=== PATIENT | female | born 1980 | race African-American/Black ===

== ENCOUNTER 2017-02-20 16:47 | Emergency (ER) | payer MEDICAID, OTHER ==
[~2017-02-20] VITALS: Ht 170.2 cm; Wt 119.0 kg
[2017-02-20 17:27] VITALS: BP 146/64
[2017-02-20] MEDS ORDERED: ACETAMINOPHEN 325 MG TABLET PO ONE (17:45)
[2017-02-20] MEDS ORDERED: SULFAMETHOX/TRIMETH DS 800-160 MG/TABLET PO ONE (17:45)
[2017-02-20] MEDS ORDERED: CEPHALEXIN MONOHYDRATE 500 MG CAPSULE PO ONE (17:45)
== END 2017-02-20 18:18 | disposition home or self-care (01) ==
LOC: EMS 16:49
DX: L03.116 Cellulitis of left lower limb (principal); Z88.0 Allergy status to penicillin; Z90.49 Acquired absence of other specified parts of digestive tract
CPT/HCPCS: 99284

== ENCOUNTER 2017-02-25 16:47 | Emergency (ER) | payer MEDICAID ==
[~2017-02-25] VITALS: Ht 170.2 cm; Wt 119.1 kg
[2017-02-25] MEDS ORDERED: SULF1TAB42 PO (17:11)
[2017-02-25] MEDS ORDERED: CEPH500 PO (17:11)
[2017-02-25] MEDS ORDERED: IBUPROFEN 800 MG TABLET PO ONE (19:00)
[2017-02-25] MEDS ORDERED: ACETAMINOPHEN/CODEINE 300-30 MG TABLET PO ONE (19:00)
[2017-02-25 19:08] LABS: BASOPHILS # (AUTO) 0.01 K/uL (0.00-0.20); BASOPHILS % (AUTO) 0.1 % (0.0-2.0); EOSINOPHILS # (AUTO) 0.54 K/uL (0.00-0.70); EOSINOPHILS % (AUTO) 5.49 % (1.0-6.0); HEMOGLOBIN 14.1 g/dL (12.0-16.0); LYMPHOCYTES # (AUTO) 0.7 K/uL (1.0-4.8); LYMPHOCYTES % (AUTO) 6.8 % (22.0-44.0); MEAN CORPUSCULAR HEMOGLOBIN 30.8 pg (26.0-34.0); MEAN CORPUSCULAR HGB CONC 34.3 G/dL (31.0-37.0); MEAN CORPUSCULAR VOLUME 90 fL (80-100); MONOCYTES # (AUTO) 0.4 K/uL (0.1-1.0); NEUTROPHILS # (AUTO) 8.3 K/uL (1.8-7.7); NEUTROPHILS % (AUTO) 83.6 % (40.0-70.0); PLATELET COUNT (AUTO) 259 K/uL (150-450); RED BLOOD CELL COUNT(AUTO) 4.56 MIL/uL (4.00-5.20); RED CELL DISTRIBUTION WIDTH 13.7 % (11.5-14.5); WHITE BLOOD COUNT (AUTO) 9.9 K/uL (4.5-11.0)
[2017-02-25 19:19] LABS: CALCIUM, TOTAL 8.6 mg/dL (8.8-10.5); CREATININE 1.35 mg/dL (0.60-1.30); POTASSIUM 4.2 mmol/L (3.5-5.1)
[2017-02-25 19:25] LABS: ALBUMIN 3.3 g/dL (3.4-5.0); BILIRUBIN,TOTAL 0.3 mg/dL (0.1-1.0); TOTAL PROTEIN, SERUM 6.6 g/dL (6.4-8.2)
[2017-02-25 20:32] VITALS: BP 135/80
== END 2017-02-25 20:38 | disposition home or self-care (01) ==
LOC: EMS 16:48
DX: L03.311 Cellulitis of abdominal wall (principal); L03.119 Cellulitis of unspecified part of limb; K52.9 Noninfective gastroenteritis and colitis, unspecified; K21.9 Gastro-esophageal reflux disease without esophagitis; I10 Essential (primary) hypertension; R13.10 Dysphagia, unspecified; Z88.0 Allergy status to penicillin; Z90.49 Acquired absence of other specified parts of digestive tract; Z80.0 Family history of malignant neoplasm of digestive organs; Z87.891 Personal history of nicotine dependence
CPT/HCPCS: 99284

== ENCOUNTER 2017-02-26 13:18 | Emergency (ER) | payer MEDICAID ==
[~2017-02-26] VITALS: Ht 171.4 cm; Wt 119.0 kg
[~2017-02-26 13:18] MED LIST: CEPH500 PO; SULF1TAB42 PO
[2017-02-26] MEDS ORDERED: ACETAMINOPHEN 500 MG TABLET PO ONE (13:30)
[2017-02-26] MEDS ORDERED: ONDANSETRON HCL 4 MG/2 ML VIAL IVP ONE ×2 (13:45→15:15)
[2017-02-26] MEDS ORDERED: SODIUM CHLORIDE 0.9% 1,000 ML IV ONE ×2 (13:45→17:45)
[2017-02-26 14:16] LABS: HEMATOCRIT 39.7 % (36-46); HEMOGLOBIN 13.6 g/dL (12.0-16.0); MEAN CORPUSCULAR HEMOGLOBIN 30.6 pg (26.0-34.0); MEAN CORPUSCULAR HGB CONC 34.3 G/dL (31.0-37.0); MEAN CORPUSCULAR VOLUME 89 fL (80-100); PLATELET COUNT (AUTO) 209 K/uL (150-450); RED BLOOD CELL COUNT(AUTO) 4.46 MIL/uL (4.00-5.20); RED CELL DISTRIBUTION WIDTH 13.5 % (11.5-14.5); WHITE BLOOD COUNT (AUTO) 12.3 K/uL (4.5-11.0)
[2017-02-26 14:23] LABS: ANION GAP 9 mmol/L (8-16); CALCIUM, TOTAL 8.2 mg/dL (8.8-10.5); CARBON DIOXIDE 25 mmol/L (22-29); CHLORIDE 103 mmol/L (98-107); CREATININE 1.16 mg/dL (0.60-1.30); GLOMERULAR FILTR. RATE CALC > 60 mL/min (>60); POTASSIUM 3.9 mmol/L (3.5-5.1); SODIUM SERUM 137 mmol/L (136-145); UREA NITROGEN, BLOOD 8 mg/dL (7-18)
[2017-02-26 14:29] LABS: ALANINE AMINOTRANSFERASE 24 U/L (12-78); ALBUMIN 3.2 g/dL (3.4-5.0); ASPARTATE AMINOTRANSFERASE 23 U/L (15-37); BILIRUBIN,TOTAL 0.3 mg/dL (0.1-1.0); TOTAL PROTEIN, SERUM 6.7 g/dL (6.4-8.2)
[2017-02-26 14:32] LABS: LACTIC ACID 0.9 mmol/L (0.4-2.0)
[2017-02-26 14:33] LABS: BAND NEUTROPHILS % (MANUAL) 26 % (1-5); EOSINOPHILS % (MANUAL) 1 % (1-6); LYMPHOCYTES % (MANUAL) 11 % (22-44); RBC MORPHOLOGY COMMENT NORMAL RBC MORPH; TOTAL CELLS COUNTED 100
[2017-02-26 14:39] LABS: APPEARANCE,URINE CLOUDY (CLEAR); GLUCOSE, URINE (UA) NEGATIVE (NEGATIVE); KETONES,URINE NEGATIVE (NEGATIVE); LEUKOCYTE ESTERASE ,URINE MODERATE (NEGATIVE); OCCULT BLOOD,URINE MODERATE (NEGATIVE); PROTEIN,URINE NEGATIVE (NEGATIVE)
[2017-02-26 14:41] LABS: ADD UA MICROSCOPIC YES
[2017-02-26 14:45] LABS: SQUAMOUS EPITHELIAL CELL,UR Few /LPF (None Seen)
[2017-02-26] MEDS ORDERED: CefTRIAXone 1 GM/DEXTROSE 50 ML IV ONE (15:00)
[2017-02-26] MEDS ORDERED: KETOROLAC TROMETHAMINE 30 MG/ML VIAL IVP ONE (16:15)
[2017-02-26 18:44] VITALS: BP 109/70
[2017-02-27] MEDS ORDERED: ONDA4 PO (14:08)
== END 2017-02-26 19:05 | disposition home or self-care (01) ==
LOC: EMS 13:20
DX: R11.2 Nausea with vomiting, unspecified (principal); R50.9 Fever, unspecified; L03.116 Cellulitis of left lower limb; Z87.891 Personal history of nicotine dependence; Z88.0 Allergy status to penicillin
CPT/HCPCS: 36415; 80053; 81001; 83605; 84703; 85025; 87040; 96361; 96365; 96375; 99284; J0696; J1885; J2405; J7030; 99285

== ENCOUNTER 2017-02-27 14:04 | Emergency (ER) | payer MEDICAID ==
[~2017-02-27] VITALS: Ht 170.2 cm; Wt 118.0 kg
[2017-02-27] MEDS ORDERED: ONDA4 PO (14:08)
[2017-02-27] MEDS ORDERED: SODIUM CHLORIDE 0.9% 1,000 ML IV ONE (15:30)
[2017-02-27] MEDS ORDERED: METOCLOPRAMIDE HCL 5 MG/ML 2 ML VIAL IVP ONE (15:30)
[2017-02-27 15:31] LABS: EOSINOPHILS % (AUTO) 6.9 % (1.0-6.0); HEMATOCRIT 40.9 % (36-46); HEMOGLOBIN 14.3 g/dL (12.0-16.0); LYMPHOCYTES # (AUTO) 0.7 K/uL (1.0-4.8); LYMPHOCYTES % (AUTO) 5.8 % (22.0-44.0); MEAN CORPUSCULAR HEMOGLOBIN 30.7 pg (26.0-34.0); MEAN CORPUSCULAR HGB CONC 34.8 G/dL (31.0-37.0); MEAN CORPUSCULAR VOLUME 88 fL (80-100); MONOCYTES # (AUTO) 0.5 K/uL (0.1-1.0); MONOCYTES % (AUTO) 4.8 % (2.0-9.0); NEUTROPHILS # (AUTO) 9.2 K/uL (1.8-7.7); NEUTROPHILS % (AUTO) 82.5 % (40.0-70.0); PLATELET COUNT (AUTO) 213 K/uL (150-450); RED BLOOD CELL COUNT(AUTO) 4.65 MIL/uL (4.00-5.20); RED CELL DISTRIBUTION WIDTH 13.7 % (11.5-14.5); WHITE BLOOD COUNT (AUTO) 11.2 K/uL (4.5-11.0)
[2017-02-27 15:42] LABS: ANION GAP 9 mmol/L (8-16); CALCIUM, TOTAL 8.3 mg/dL (8.8-10.5); CARBON DIOXIDE 26 mmol/L (22-29); CHLORIDE 104 mmol/L (98-107); CREATININE 1.14 mg/dL (0.60-1.30); GLOMERULAR FILTR. RATE CALC > 60 mL/min (>60); POTASSIUM 3.5 mmol/L (3.5-5.1); SODIUM SERUM 139 mmol/L (136-145); UREA NITROGEN, BLOOD 5 mg/dL (7-18)
[2017-02-27] MEDS ORDERED: LORazepam 2 MG/ML VIAL IVP ONE (16:30)
[2017-02-27] MEDS ORDERED: DiphenhydrAMINE HCL 50 MG/ML VIAL IVP ONE (16:30)
[2017-02-27 17:05] VITALS: BP 105/56
== END 2017-02-27 17:06 | disposition home or self-care (01) ==
LOC: EMS 14:05
DX: K52.9 Noninfective gastroenteritis and colitis, unspecified (principal); L03.311 Cellulitis of abdominal wall; Z87.891 Personal history of nicotine dependence; Z88.0 Allergy status to penicillin
CPT/HCPCS: 36415; 80048; 85025; 96361; 96374; 99284; J2765; J7030; J1200; J2060

== ENCOUNTER 2018-01-09 17:47 | Emergency (ER) | payer MEDICAID, OTHER ==
[~2018-01-09] VITALS: Ht 170.2 cm; Wt 132.7 kg
[~2018-01-09 17:47] MED LIST changes: +ONDA4 PO
[2018-01-09] MEDS ORDERED: LIDOCAINE HCL 1% 10 ML VIAL INJ ONE (19:45)
[2018-01-09] MEDS ORDERED: POVIDONE-IODINE 10% 15 ML SOLUTION UD TP ONE (20:15)
[2018-01-09 20:30] VITALS: BP 130/74
== END 2018-01-09 21:00 | disposition home or self-care (01) ==
LOC: EMS 17:48
DX: L72.3 Sebaceous cyst (principal); R03.0 Elevated blood-pressure reading, without diagnosis of hypertension; J45.909 Unspecified asthma, uncomplicated; Z88.0 Allergy status to penicillin
CPT/HCPCS: 10060; 99283; J3490

== ENCOUNTER 2023-02-23 19:37 | Emergency (ER) | payer OTHER ==
[~2023-02-23] VITALS: Ht 175.3 cm; Wt 152.0 kg
[2023-02-23 19:44] VITALS: BP 124/73; PULSE 74; RESP 18; TEMP 100
[2023-02-23] MEDS ORDERED: DOXY-354 PO (21:14)
[2023-02-23] MEDS ORDERED: BACITRACIN 0.9 GM PACKET OINTMENT TP ONE (21:15)
== END 2023-02-23 21:23 | disposition home or self-care (01) ==
LOC: EMS 19:38
DX: S81.012A Laceration without foreign body, left knee, initial encounter (principal); F12.90 Cannabis use, unspecified, uncomplicated; Z90.49 Acquired absence of other specified parts of digestive tract; Z88.0 Allergy status to penicillin; W25.XXXA Contact with sharp glass, initial encounter; Y93.E9 Activity, other interior property and clothing maintenance; Y92.092 Bedroom in other non-institutional residence as the place of occurrence of the external cause; Y99.8 Other external cause status
CPT/HCPCS: 99282; 99283

== ENCOUNTER 2023-08-14 19:36 | Emergency (ER) | payer OTHER ==
[~2023-08-14] VITALS: Ht 172.7 cm; Wt 152.7 kg
[~2023-08-14 19:36] MED LIST changes: -CEPH500 PO; +DOXY-354 PO; -ONDA4 PO; -SULF1TAB42 PO
[2023-08-14 19:48] VITALS: BP 129/71; PULSE 85; RESP 15; TEMP 99.8
[2023-08-14 20:22] LABS: COVID AG,FIA SOURCE NASAL SWAB
[2023-08-14 20:26] LABS: SARS-COV2 (COVID) ANTIGEN,FIA Negative (Negative)
[2023-08-14 20:33] LABS: RAPID GROUP A STREP NEGATIVE (NEGATIVE)
[2023-08-14 20:41] LABS: INFLUENZA TYPE A NEGATIVE FOR TYPE A (NEGATIVE); INFLUENZA TYPE B NEGATIVE FOR TYPE B (NEGATIVE)
[2023-08-14] MEDS ORDERED: AZIT250T9 PO (22:44)
== END 2023-08-14 22:56 | disposition home or self-care (01) ==
LOC: EMS 20:27
DX: J02.9 Acute pharyngitis, unspecified (principal); J45.909 Unspecified asthma, uncomplicated; F12.90 Cannabis use, unspecified, uncomplicated; Z90.49 Acquired absence of other specified parts of digestive tract; Z88.0 Allergy status to penicillin; Z20.822 Contact with and (suspected) exposure to COVID-19
CPT/HCPCS: 87430; 87804; 99283

== ENCOUNTER 2023-12-14 16:13 | Emergency (ER) | payer OTHER ==
[~2023-12-14] VITALS: Ht 172.7 cm; Wt 158.6 kg
[2023-12-14 18:35] LABS: BASOPHILS % (AUTO) 0.7 % (0.0-2.0); EOSINOPHILS % (AUTO) 4.7 % (1.0-6.0); HEMATOCRIT 42.2 % (36-46); HEMOGLOBIN 14.4 g/dL (12.0-16.0); LYMPHOCYTES # (AUTO) 4.6 K/uL (1.0-4.8); LYMPHOCYTES % (AUTO) 29.7 % (22.0-44.0); MEAN CORPUSCULAR HEMOGLOBIN 29.4 pg (26.0-34.0); MEAN CORPUSCULAR HGB CONC 34.2 G/dL (31.0-37.0); MEAN CORPUSCULAR VOLUME 86 fL (80-100); MONOCYTES # (AUTO) 0.8 K/uL (0.1-1.0); MONOCYTES % (AUTO) 4.9 % (2.0-9.0); NEUTROPHILS # (AUTO) 9.3 K/uL (1.8-7.7); PLATELET COUNT (AUTO) 362 K/uL (150-450); WHITE BLOOD COUNT (AUTO) 15.5 K/uL (4.5-11.0)
[2023-12-14 18:55] LABS: CALCIUM, TOTAL 8.4 mg/dL (8.8-10.5); CREATININE 1.34 mg/dL (0.60-1.30); POTASSIUM 3.8 mmol/L (3.5-5.1)
[2023-12-14 19:01] LABS: ALBUMIN 3.2 g/dL (3.4-5.0); BILIRUBIN,TOTAL 0.2 mg/dL (0.1-1.0); TOTAL PROTEIN, SERUM 6.9 g/dL (6.4-8.2)
[2023-12-14 19:03] LABS: TROPONIN I-HIGH SENSITIVITY 5 ng/L (<51)
[2023-12-14 19:42] VITALS: BP 101/68; PULSE 88; RESP 18; TEMP 98.3
== END 2023-12-14 20:02 | disposition home or self-care (01) ==
LOC: EMS 16:14
DX: R07.89 Other chest pain (principal); J45.909 Unspecified asthma, uncomplicated; I10 Essential (primary) hypertension; Z90.49 Acquired absence of other specified parts of digestive tract; Z88.0 Allergy status to penicillin; Z91.013 Allergy to seafood
CPT/HCPCS: 71045; 80053; 83690; 84484; 84703; 85025; 93005; 99285; 36415-L1; 36415-TC

== ENCOUNTER 2024-05-11 19:56 | Emergency (ER) | payer OTHER ==
[~2024-05-11] VITALS: Ht 172.7 cm; Wt 127.7 kg
[2024-05-11 20:09] VITALS: TEMP 99.9
[2024-05-11 20:16] VITALS: BP 137/67; PULSE 95; RESP 18; O2SAT 94
[2024-05-11] MEDS: KETOROLAC TROMETHAMINE 30 MG/ML VIAL IM ONE (22:51)
[2024-05-11] MEDS: TraMADol HCL 50 MG TABLET PO ONE (22:51)
== END 2024-05-11 23:19 | disposition home or self-care (01) ==
LOC: EMS 19:56
DX: S83.8X2A Sprain of other specified parts of left knee, initial encounter (principal); J45.909 Unspecified asthma, uncomplicated; I10 Essential (primary) hypertension; Z90.49 Acquired absence of other specified parts of digestive tract; Z88.0 Allergy status to penicillin; Z91.013 Allergy to seafood; X58.XXXA Exposure to other specified factors, initial encounter; Y93.01 Activity, walking, marching and hiking; Y92.89 Other specified places as the place of occurrence of the external cause; Y99.8 Other external cause status
CPT/HCPCS: 99283; 29505; 73562; 96372; J1885